=== PATIENT | female | born 1965 | race Caucasian/White ===

== ENCOUNTER 2016-02-18 11:49 | Day surgery (SDC) | payer BC ==
[~2016-02-18 11:49] MED LIST: RINGERS SOLUTION,LACTATED 1,000 ML IV PRN
[2016-02-18] MEDS ORDERED: RINGERS SOLUTION,LACTATED 1,000 ML IV ONE ×2 (12:20→14:04)
[2016-02-18 12:44] LABS: Hemoglobin 13.1 gm/dL (12.5-16.0); Mean Cell Volume 89.4 fl (78-100); Mean Corpuscular Hgb Conc 33.6 g/dl (32-36); Mean Platelet Volume 9.6 fl (6.0-9.5); Neutrophil % 67.8 % (42-75.0); Platelet Count 205 K/mm3 (150-450); Red Blood Count 4.36 M/mm3 (4.2-5.4); Red Cell Distribution Width 12.9 % (11.5-14.0); White Blood Count 8.9 K/mm3 (4.0-10.5)
[2016-02-18] MEDS ORDERED: LIDOCAINE HCL/EPINEPHRINE 50 ML VIAL IJ ONE ×2 (12:55)
[2016-02-18 13:04] LABS: Albumin * 3.8 gm/dl (3.4-5.0); Anion Gap 15.6 mmol/L (6.8-13.8); BUN/Creatinine Ratio 21.6 (9.0-21.6); Bilirubin, Total 0.6 mg/dL (0.0-1.1); Ca. Corrected For Albumin 9.3 mg/dL (8.4-10.2); Calcium * 9.5 mg/dL (7.9-10.9); Carbon Dioxide 24.6 mmol/L (24-32.6); Potassium 4.2 mmol/L (3.4-4.6); Total Protein 7.1 gm/dL (6.2-8.2)
[2016-02-18] MEDS ORDERED: RINGERS SOLUTION,LACTATED 1,000 ML IV PRN (16:32)
[2016-02-18] MEDS ORDERED: oxyCODONE HCL/ACETAMINOPHEN 1 TAB TABLET PO ONE (16:32)
--- NOTE | 2016-02-18 17:20 | OR ---
Operative Report - Dictated Report Narrative: Date of Procedure: 02/18/2016 PROCEDURE: Laparoscopic bilateral salpingo-oophorectomy ANESTHESIA: General, endotracheal intubation. PREOPERATIVE DIAGNOSIS: 1. Right ovarian dermoid cyst 5.5 cm 2. Menopause 3. Obesity BMI 34 4. Smoker 5. Status post cardiac stent x 2 POSTOPERATIVE DIAGNOSES: 1. Right ovarian dermoid cyst 5.5 cm 2. Menopause 3. Obesity BMI 34 4. Smoker 5. Status post cardiac stent x 2 SURGEON: Renee Alcocer MD [employer] OPERATOR: OR team (Patience Martínez) FINDINGS: 1. Normal uterus, sounded to 7 cm. 2. Right ovarian dermoid cyst, about 5 cm, with greasy yellow fluid. 3. Left ovary and both tubes appeared normal. 4. There were adhesions of adnexa to pelvic side wall and adhesions of cecum and sigmoid colon to the pelvic side wall. SPECIMEN: 1. Left tube and ovary. 2. Right tube and ovary. DRAINS: None. URINE OUTPUT: not measured. BLOOD LOSS: 20 ml INTRAOPARATIVE IV FLUIDS: 1400 ml COMPLICATIONS: None. DESCRIPTION OF PROCEDURE: The patient was consented prior to the operation and taken to the operating room. She was placed on the operating table supine. SCDs were placed on her lower extremities. General anesthesia was induced, and it was successful. She was repositioned in the dorsal lithotomy position. Her right arm was tucked at her side under the drape. Exam under anesthesia revealed a normal size uterus with no palpable adnexal mass. The abdomen was prepped with Chloraprep and the vagina was prepped with Betadine. She was draped in the usual sterile fashion. A time-out procedure was conducted to confirm the correct patient for the correct procedure. After time-out, a bivalve speculum was placed into the vagina. The cervix was visualized. The vagina and the cervix were prepped with Betadine one more time. The anterior cervix was grasped with a single-tooth tenaculum. The uterus was sounded to 7 cm. A Zumi uterine manipulator was inserted into the uterine cavity. The balloon was inflated with 3 cc of air. The single-tooth tenaculum was removed. Slayden speculum was removed. The surgeon then changed gloves and attention was paid to the abdomen. A small vertical incision was made at the upper edge of the umbilicus. A Veress needle was inserted into the abdominal cavity. Intraabdominal placement was confirmed with a saline drop test and with low entry pressure of 4 mmHg. The abdomen was insufflated with CO2 gas to an intraabdominal pressure of 15 mmHg. The Veress needle was removed. A 5 mm trocar with the laparoscope was inserted through the umbilicus incision into the abdomen. Intraabdominal placement was confirmed with the laparoscope. Survey of the entry site revealed no trauma to the underlying structures. The patient was then placed in Trendelenburg position. A left lower quadrant trocar (5 mm) and a right lower quadrant trocar (12 mm) were both placed 2 cm above and 2 cm medial to the anterior superior iliac spine to avoid the inferior epigastric vessels. A fourth trocar (5 mm) was placed suprapubically in the midline. All trocars were placed under the direct visualization of the laparoscope. Survey of the abdomen and pelvis revealed the findings note above. Attention was turned to the right side. The right fallopian tube was elevated and the right IP ligament was divided with the Thunderbeat. The division was carried on the broad ligament toward the cornual region. The right fallopian tube and the utero-ovarian ligament were divided at the uterine cornue using the Thunderbeat. The specimen was placed in the cul-de-sac for later retrieval. The same procedure was performed on the left side. An Endobag was placed through the 12 mm trocar. The left ovary tube was removed through the 12 mm trocar. The same Endobag was placed back through the 12 mm trocar. The right ovary and tube was placed inside the Endobag and brought out through the 12 mm trocar site. The right dermoid cyst was drained inside the Endobag without spillage and removed within the bag. The pelvis was irrigated. There was hemostasis. The lower abdominal trocars were removed under direct visualization of the laparoscope. The abdomen was deflated. The trocar at the umbilicus was removed with the laparoscope. The fascia of the LLQ trocar was closed with 0-Vicryl suture on a UR-6 needle. The skin incisions were closed with 4-0 Monocryl suture. The incision was infiltrated with 2-3 ml of 0.25% Marcaine for post op pain control. The incision was covered with steri strips. The Zumi uterine manipulator was removed. There was no bleeding from the vagina. Sponge, laps and needle counts were correct x 2. The patient tolerated the procedure well and taken to the recovery room in stable condition. Renee Alcocer MD
[2016-02-18] MEDS ORDERED: oxyCODONE HCL/ACETAMINOPHEN 1 TAB TABLET ONE (17:53)
[2016-02-18 18:55] VITALS: BP 109/68
== END 2016-02-18 11:50 | disposition home or self-care (01) ==
LOC: AMB 11:49
PROVIDERS: ATTEND Obstetrics & Gynecology
PROC: 0UT74ZZ Resection of Bilateral Fallopian Tubes, Percutaneous Endoscopic Approach (ICD-10-PCS; 2016-02-18)
PROC: 0UT24ZZ Resection of Bilateral Ovaries, Percutaneous Endoscopic Approach (ICD-10-PCS; principal; 2016-02-18 13:00)
DX: D27.0 Benign neoplasm of right ovary (principal); I50.9 Heart failure, unspecified; E78.5 Hyperlipidemia, unspecified; F17.200 Nicotine dependence, unspecified, uncomplicated; E66.9 Obesity, unspecified; Z68.33 Body mass index [BMI] 33.0-33.9, adult; Z78.0 Asymptomatic menopausal state